=== PATIENT | male | born 1985 | race Caucasian/White ===

== ENCOUNTER 2019-05-08 15:59 | Emergency (ER) | payer SELFPAY ==
[2019-05-08] MEDS ORDERED: Diphtheria,Pertussis(Acell),Tetanus Vaccine 0.5 ML SDV IM ONE (16:18)
--- NOTE | 2019-05-08 16:25 | EDM.PDOC ---
ED HPI GENERAL MEDICAL PROBLEM - General Chief Complaint: Upper Extremity Injury/Pain Stated Complaint: NAIL IN RIGHT HAND Time Seen by Provider: 05/08/19 16:15 Source of Information: Reports: Patient, RN History Limitations: Reports: No Limitations - History of Present Illness INITIAL COMMENTS - FREE TEXT/NARRATIVE: 33 yo male here after getting a nail in his R thumb. This is work related. He is not UTD on tetanus. 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: Other (see below) (none) Right Hand Pain Score (Numeric/FACES): 2 - Related Data Allergies Allergy/AdvReac Type Severity Reaction Status Date / Time No Known Allergies Allergy Verified 05/08/19 16:15 Home Meds: Home Meds Cephalexin [Keflex] 500 mg PO Q6H #10 capsule 05/08/19 [Rx] Past Medical History - Past Surgical History Musculoskeletal Surgical History: Reports: Other (See Below) Other Musculoskeletal Surgeries/Procedures:: left arm surgery Social & Family History - Tobacco Use Smoking Status *Q: Never Smoker - Caffeine Use Caffeine Use: Reports: Coffee - Alcohol Use Days Per Week of Alcohol Use: 7 Number of Drinks Per Day: 2 Total Drinks Per Week: 14 - Recreational Drug Use Recreational Drug Use: Yes Drug Use in Last 12 Months: Yes Recreational Drug Type: Reports: Marijuana/Hashish Recreational Drug Use Frequency: Daily Review of Systems - Review of Systems Review Of Systems: ROS reveals no pertinent complaints other than HPI. Constitutional: Reports: No Symptoms Skin: Reports: Wound (puncture of R thumb at base and into the thenar emminence. ) Neurological: Reports: No Symptoms ED EXAM, GENERAL - Physical Exam Exam: See Below Exam Limited By: No Limitations General Appearance: Alert, WD/WN, No Apparent Distress Extremities: Other (large nail imbedded in R thumb.). No: Normal Inspection, Non-Tender, No Pedal Edema Neurological: Alert, Oriented, CN II-XII Intact, Normal Cognition, No Motor/ Sensory Deficits Psychiatric: Normal Affect, Normal Mood Skin Exam: Warm, Dry, Normal Color, No Rash, Wound/Incision (nail protruding from thenar emminence of R thumb. No active bleeding.) ED TRAUMA EXTREMITY PROCEDURES - Foreign Body Removal Indication:: Nail in R hand/thenar eminence. Consent Obtained: Patient Performing Doctor:: Joshua Dc Foreign Body Other Location Comment:: R thenar eminence. Anesthesia Type: Local Complications:: No Comments:: After local anesthesia with 7 ml of 1% lidocaine locally and a Betadine prep the nail was pulled out. The hand was then fully cleaned and dressed by nursing. Course - Vital Signs Last Recorded V/S: Last Vital Signs Temp 37.0 C 05/08/19 16:15 Pulse 80 05/08/19 16:15 Resp 16 05/08/19 16:15 BP 154/98 H 05/08/19 16:15 Pulse Ox 99 05/08/19 16:15 - Orders/Labs/Meds Orders: Active Orders 24 hr Category Date Time Status Vaccines to be Administered [RC] PER UNIT ROUTINE Care 05/08/19 16:18 Active Meds: Medications Discontinued Medications Generic Name Dose Route Start Last Admin Trade Name Freq PRN Reason Stop Dose Admin Bacitracin 1 dose 05/08/19 16:50 Bacitracin Oint 1 Gm TOP 05/08/19 16:51 ONETIME ONE Cephalexin 1,000 mg 05/08/19 16:51 Keflex PO 05/08/19 16:52 ONETIME ONE Diphtheria/Tetanus/Acell Pertussis 0.5 ml 05/08/19 16:18 05/08/19 16:21 Adacel IM 05/08/19 16:19 0.5 ml .ONCE ONE Administration Lidocaine HCl 5 ml 05/08/19 16:32 Xylocaine-Mpf 1% INJECT 05/08/19 16:33 ONETIME ONE Lidocaine HCl 5 ml 05/08/19 16:43 Xylocaine-Mpf 1% INJECT 05/08/19 16:44 ONETIME ONE - Radiology Interpretation Free Text/Narrative:: R thumb X-ray-nail not imbedded in bone. Departure - Departure Time of Disposition: 17:05 Disposition: Home, Self-Care 01 Condition: Fair Clinical Impression: Puncture wound of hand with foreign body Qualifiers: Encounter type: initial encounter Laterality: right Qualified Code(s): S61.441A - Puncture wound with foreign body of right hand, initial encounter - Discharge Information *PRESCRIPTION DRUG MONITORING PROGRAM REVIEWED*: No *COPY OF PRESCRIPTION DRUG MONITORING REPORT IN PATIENT RETA: No Prescriptions: Cephalexin [Keflex] 500 mg PO Q6H #10 capsule Instructions: Puncture Wound Referrals: PCP,None [Primary Care Provider] - Forms: ED Department Discharge Additional Instructions: Rest right hand for the next 72 hrs. Take cephalexin every 6 hrs until gone. Clean hand with soap and water several times/days. Take acetaminophen and/or ibuprofen as needed for pain relief. Recheck in urgent care on Sunday. - My Orders Last 24 Hours: My Active Orders 05/08/19 16:18 Vaccines to be Administered [RC] PER UNIT ROUTINE - Assessment/Plan Last 24 Hours: My Active Orders 05/08/19 16:18 Vaccines to be Administered [RC] PER UNIT ROUTINE
--- NOTE | 2019-05-08 16:46 | CRLCR ---
Indication: Nail imbedded in thumb Technique: Three views right hand Comparison: None Findings/impression: A 7.3 x 3.7 mm metallic nail is in the soft tissues of the lateral thenar eminence. No fracture or subluxation. Remainder of the osseous structures appear intact. Dictated by Shoshana Manzano MD @ May 08 2019 4:41PM Signed by Dr. Shoshana Manzano @ May 08 2019 4:44PM
[2019-05-08] MEDS ORDERED: Bacitracin Oint 1 GM U/D Packet TOP ONE (16:50)
[2019-05-08] MEDS ORDERED: Cephalexin 250 MG Cap PO ONE (16:51)
== END 2019-05-08 17:10 | disposition home or self-care (01) ==
LOC: JP.ED 15:59
DX: S61.031A Puncture wound without foreign body of right thumb without damage to nail, initial encounter (principal); Z23 Encounter for immunization; W45.0XXA Nail entering through skin, initial encounter; Y99.0 Civilian activity done for income or pay
CPT/HCPCS: 73140; 90471; 90715; 99283; A9270; J2001